=== PATIENT | female | born 1940 | race Caucasian/White ===

== ENCOUNTER 2023-04-02 16:21 | Observation (INO) | payer MEDICARE, MEDICAID, SELFPAY ==
[2023-04-02] VITALS (7 sets, daily range): BP systolic 138–161; BP diastolic 70–92; PULSE 65–74; RESP 14–18; TEMP 36.3–36.7; O2SAT 96–98; BMI 34.3; BMI 33.8
--- NOTE | 2023-04-02 16:30 | XR_ITS ---
The [address] [address] Patient Name: ARTURO ZHU MRN: [id number] date: 1940 Sex: F Assigned Patient Location: ER Current Patient Location: ER Accession/Order Number: [id number] Exam Date: 04/02/2023 17:00 Report Date: 04/02/2023 17:22 At the request of: LINA SINGLETON Procedure: XR tibia fibula LT 2V EXAM: XR tibia fibula LT 2V HISTORY: Fall out of wheelchair this morning, now with pain. COMPARISON: None. TECHNIQUE: 2 views of the left tibia and fibula were obtained. FINDINGS: There is no evidence of an acute fracture or dislocation. Diffuse asthenia is noted. Very mild degenerative changes are seen about the knee joints. Diffuse soft tissue swelling is noted in the leg extending into the ankle and foot. XR/XR tibia fibula LT 2V IMPRESSION: No acute fracture or dislocation. No significant focal osseous abnormality is identified. Diffuse osteopenia is noted. Electronically authenticated by: HERBERT MONTES Date: 04/02/2023 17:22
--- NOTE | 2023-04-02 16:30 | XR_ITS ---
The [address] [address] Patient Name: ARTURO ZHU MRN: [id number] date: 1940 Sex: F Assigned Patient Location: ER Current Patient Location: ED.MAIN Accession/Order Number: [id number] Exam Date: 04/02/2023 17:00 Report Date: 04/02/2023 17:27 At the request of: LINA SINGLETON Procedure: XR knee LT 4V EXAM: XR knee LT 4V, XR femur LT 2V, XR pelvis 1-2V HISTORY: Fall COMPARISON: Tibia and fibula x-rays of same day TECHNIQUE: 3 views of the knee and 4 views of the femur and AP pelvis FINDINGS: No visualized fracture, dislocation, subluxation or osseous lesion. Tricompartmental joint spaces of the knee are unremarkable for patient's age. Small osteophytes off the lateral tibial plateau and patella. Patient is status post right hip hemiarthroplasty. The prosthesis appears unremarkable. No visualized soft tissue edema. XR/XR knee LT 4V IMPRESSION: No visualized acute abnormality Electronically authenticated by: TABATHA CANADA Date: 04/02/2023 17:27
--- NOTE | 2023-04-02 16:30 | XR_ITS ---
The [address] [address] Patient Name: ARTURO ZHU MRN: [id number] date: 1940 Sex: F Assigned Patient Location: ER Current Patient Location: ED.MAIN Accession/Order Number: [id number] Exam Date: 04/02/2023 17:00 Report Date: 04/02/2023 17:27 At the request of: LINA SINGLETON Procedure: XR femur LT 2V EXAM: XR knee LT 4V, XR femur LT 2V, XR pelvis 1-2V HISTORY: Fall COMPARISON: Tibia and fibula x-rays of same day TECHNIQUE: 3 views of the knee and 4 views of the femur and AP pelvis FINDINGS: No visualized fracture, dislocation, subluxation or osseous lesion. Tricompartmental joint spaces of the knee are unremarkable for patient's age. Small osteophytes off the lateral tibial plateau and patella. Patient is status post right hip hemiarthroplasty. The prosthesis appears unremarkable. No visualized soft tissue edema. XR/XR femur LT 2V IMPRESSION: No visualized acute abnormality Electronically authenticated by: TABATHA CANADA Date: 04/02/2023 17:27
--- NOTE | 2023-04-02 16:32 | ED_ITS ---
HPI - Extremity Injury (Lower) General Chief Complaint: Extremity Injury, Lower Stated Complaint: FALL Time Seen by Provider: 04/02/23 16:26 Source: patient Mode of arrival: ambulance Limitations: physical limitation History of Present Illness HPI Narrative: patient is an 82-year-old female who presents to the emergency department by ambulance for the evaluation of left knee pain. Patient states that she fell ear lier today while walking with her walker and fell on her bilateral knees. She does complain of some pain to the left thigh and left lower leg but states most of her pain is in the left anterior knee. She denies head injury, loss of consciousness, neck or back pain. She is on no blood thinners. She takes a baby aspirin daily. she states initially she was able to take one small step but is no longer able to walk and called 911 to bring her to the hospital. Related Data Allergies Allergy/AdvReac Type Severity Reaction Status Date / Time No Known Drug Allergies Allergy Verified 04/02/23 16:25 Review of Systems ROS Constitutional Denies: fever or chills Ears, nose, mouth, and throat Denies: throat pain Cardiovascular Denies: chest pain Respiratory Denies: shortness of breath Gastrointestinal Denies: nausea or vomiting Musculoskeletal Reports: extremity pain; Denies: back pain or neck pain Integumentary/Breast Denies: rash Neurological Denies: headache PFSH PFSH Social History Smoking status: Never smoker Exam Narrative Exam Narrative: Gen.: Awake, alert, in no distress Head: Normocephalic, atraumatic ENT: Moist mucous membranes, C-spine nontender with full range of motion Respiratory: No respiratory distress, lungs clear bilaterally Cardio: Regular rate and rhythm Back: no bony tenderness of the T-spine or L-spine Extremities: left knee with edema and ecchymosis, limited range of motion of flexion and extension. 2+ DP pulses bilaterally with diffuse tenderness of the left lower leg and ankle, no obvious deformity. Diffuse mild tenderness of the left thigh with no obvious deformity or swelling noted. Pelvis is stable Psych: Normal mood and affect Neuro: No focal neuro deficit Skin: Warm, dry, intact Constitutional Vital Signs, click to edit/add: Last Vital Signs Temp 98.0 F 04/02/23 16:25 Pulse 74 04/02/23 16:25 Resp 16 04/02/23 16:25 BP 138/84 04/02/23 16:25 Pulse Ox 98 04/02/23 16:25 O2 Del Method Room Air 04/02/23 16:25 Course Vital Signs Vital signs: Vital Signs Temperature 98.0 F 04/02/23 16:25 Pulse Rate 74 04/02/23 16:25 Respiratory Rate 16 04/02/23 16:25 Blood Pressure 138/84 04/02/23 16:25 Pulse Oximetry 98 04/02/23 16:25 Oxygen Delivery Method Room Air 04/02/23 16:25 Temperature 98.0 F 04/02/23 16:25 Pulse Rate 74 04/02/23 16:25 Respiratory Rate 16 04/02/23 16:25 Blood Pressure 138/84 04/02/23 16:25 Pulse Oximetry 98 04/02/23 16:25 Oxygen Delivery Method Room Air 04/02/23 16:25 MDM - Extremity Injury (Lower) MDM Narrative Medical decision making narrative: patient was medicated with [facility] for pain. X-rays of the pelvis, left femur, left knee, left tibia-fibula show arthritis changes with no acute fracture or dislocation. patient is unable to bear weight and lives alone. She states there is no one who can help her at home. She is admitted for pain control, PT/OT evaluation. Discussed with her PCP, Dr. Kennedy ([id number]) who is in agreement with treatment plan. Patient admitted for observation. Medical Records Attestation: I reviewed the patient's medical records. Imaging Data XR pelvis/femur/knee/tibfib: Attestation: I have reviewed the pertinent imaging results. Radiologist's impression: No fracture Discharge Plan Discharge Chief Complaint: Extremity Injury, Lower Patient Disposition: Admitted as Observation Time of Disposition Decision: 17:42 Stand Alone Forms: Portal Instructions Referrals: Pj Kennedy MD [Primary Care Provider] - 1 week
--- NOTE | 2023-04-02 17:11 | XR_ITS ---
The [address] [address] Patient Name: ARTURO ZHU MRN: [id number] date: 1940 Sex: F Assigned Patient Location: ER Current Patient Location: ED.MAIN Accession/Order Number: [id number] Exam Date: 04/02/2023 17:00 Report Date: 04/02/2023 17:27 At the request of: LINA SINGLETON Procedure: XR pelvis 1-2V EXAM: XR knee LT 4V, XR femur LT 2V, XR pelvis 1-2V HISTORY: Fall COMPARISON: Tibia and fibula x-rays of same day TECHNIQUE: 3 views of the knee and 4 views of the femur and AP pelvis FINDINGS: No visualized fracture, dislocation, subluxation or osseous lesion. Tricompartmental joint spaces of the knee are unremarkable for patient's age. Small osteophytes off the lateral tibial plateau and patella. Patient is status post right hip hemiarthroplasty. The prosthesis appears unremarkable. No visualized soft tissue edema. XR/XR pelvis 1-2V IMPRESSION: No visualized acute abnormality Electronically authenticated by: TABATHA CANADA Date: 04/02/2023 17:27
[2023-04-02] MEDS: HYDROCODONE/ACETAMINOPHEN 5-325 MG TABLET 1 TAB PO (17:14)
[2023-04-02] MEDS: METHYLPREDNISOLONE SOD SUCC PF 125 MG/2 ML VIAL 60 MG IVP (21:14)
[2023-04-03 00:03] VITALS: BP 141/69; PULSE 74; RESP 14; TEMP 36.7; O2SAT 92; O2SAT 93
[2023-04-03 00:13] VITALS: PULSE 70; RESP 14
[2023-04-03] MEDS: METHYLPREDNISOLONE SOD SUCC PF 125 MG/2 ML VIAL 60 MG IVP ×4 (03:36→21:23)
[2023-04-03 04:35] LABS: Basophils Percent Auto 0.3 % (0.2-2.0); Hematocrit 38.6 % (36.0-48.0); Hemoglobin 12.3 g/dL (12.0-16.0); Immature Granulocytes Abs Auto 0.04 10^3/uL (0.00-0.03); Immature Granulocytes Pct Auto 0.6 % (0.0-0.5); Lymphocytes Absolute Auto 0.7 10^3/uL (1.2-3.8); Lymphocytes Percent Auto 10.3 % (20.5-60.0); Mean Corpuscular HGB Conc 31.9 g/dL (29.9-35.2); Mean Corpuscular Hemoglobin 29.3 pg (26.7-34.0); Mean Corpuscular Volume 91.9 fL (81.0-99.0); Mean Platelet Volume 10.9 fL (9.5-13.5); Monocytes Absolute Auto 0.1 10^3/uL (0.3-0.8); Monocytes Percent Auto 0.7 % (1.7-12.0); Neutrophils Absolute Auto 6.1 10^3/uL (1.4-6.5); Neutrophils Percent Auto 88.1 % (43.0-75.0); Platelet Count 215 10^3/uL (150-450); Red Cell Distribution Width 13.5 % (11.0-15.0)
[2023-04-03 04:42] LABS: Anion Gap 13.8; BUN Creatinine Ratio 22.4; Calcium 8.6 mg/dL (8.5-10.1); Carbon Dioxide 24.7 mmol/L (21.0-32.0); Chloride 104 mmol/L (98-107); Estimated GFR (African America 59 (>=60); Estimated GFR (Non-African Ame 49 (>=60); Glucose 169 mg/dL (74-106); Potassium 4.5 mmol/L (3.5-5.1); Sodium 138 mmol/L (136-145)
[2023-04-03 07:42] VITALS: BP 158/91; PULSE 71; RESP 18; TEMP 36.4; O2SAT 91
[2023-04-03] MEDS: ACETAMINOPHEN 500 MG TABLET 1000 MG PO (08:40)
--- NOTE | 2023-04-03 09:53 | CM.NOTE ---
Rounds made with Dr. Kennedy, discussed skilled therapy with pt. Pt states he first choice would be [facility].
--- NOTE | 2023-04-03 10:02 | P.HP_ITS ---
H&P: HPI History of Present Illness Chief complaint: Left knee pain Narrative: 82 y/o female with left sided hemiparesis due to prior stroke presents to ER after a fall. Patient was walking with walker and lost balance. Fell forward and hit left knee on TV and fell to ground. No LOC. Initially able to stand and bear weight but pain worsened. Severe pain in knee and not able to walk or stand. To ER and x-ray negative for acute change and showed OA knee. Left hip replacement with normal alignment. Not able to ambulate and admitted. Resumed home medication. Reports pain tolerable with medication. Review of Systems ROS Constitutional Denies: fever, chills or night sweats Cardiovascular Denies: chest pain, palpitations or edema Respiratory Denies: shortness of breath, cough or wheezing Gastrointestinal Denies: abdominal pain, nausea, vomiting or diarrhea Genitourinary Denies: painful urination [facility] Medical History (Updated 04/02/23 @ 18:56 by Pj Kennedy MD) Surgical History (Updated 04/02/23 @ 18:39 by Dipti Stubbs) Family History (Updated 04/02/23 @ 18:40 by Dipti Stubbs) Mother Family history of CHF (congestive heart failure) Family history of diabetes mellitus Family history of hypertension Family history of myocardial infarction Brother Family history of COPD (chronic obstructive pulmonary disease) Family history of cancer Sister Family history of COPD (chronic obstructive pulmonary disease) Family history of cancer Family history of hypertension Social History (Updated 04/02/23 @ 18:42 by Dipti Stubbs) Within the past year, how often did you have a drink containing alcohol: never Within the past year, how many standard drinks containing alcohol did you have on a typical day: 1 or 2 Within the past year, how often did you have six or more drinks on one occasion: never Total score: 0 Score interpretation: A score less than 3 is consistent with normal alcohol consumption. Smoking status: Never smoker Non-prescribed substance use: denies use Highest level of school completed/degree received: 8th grade Are you now , , , , never or living with a partner: In a typical week, how many times do you talk on the telephone with family, friends, or neighbors: twice per week How often do you get together with friends or relatives: 3 or more times per week How often do you attend catholic or synagogue services: 1-3 times per year Do you belong to any clubs or organizations such as catholic groups unions, fraternal or athletic groups, or school groups: no Total score: 1 Score interpretation: A score of less than or equal to 1 indicates the most socially isolated. Little interest or pleasure in doing things: not at all Feeling down, depressed, or hopeless: several days Feel stressed/tense/nervous/anxious/difficulty sleeping: only a little Gender Identity: female Meds Home Medications and Allergies Home Medications Medication Instructions Recorded Confirmed Type aspirin 81 mg capsule 81 mg PO DAILY 04/02/23 04/02/23 History omeprazole 40 mg capsule,delayed 40 mg PO DAILY 04/02/23 04/02/23 History release Allergies Allergy/AdvReac Type Severity Reaction Status Date / Time No Known Drug Allergies Allergy Verified 04/02/23 16:25 Exam Constitutional Vital Signs, click to edit/add: Last Vital Signs Temp 97.6 F 04/03/23 07:42 Pulse 71 04/03/23 07:42 Resp 18 04/03/23 07:42 BP 158/91 H 04/03/23 07:42 Pulse Ox 91 L 04/03/23 07:42 O2 Del Method Room Air 04/03/23 07:42 Documenting provider has reviewed patient's vital signs: yes Common normals: no apparent distress, oriented x3 and alert HENMT Common normals: normocephalic Eye Common normals: PERRL and EOMs intact bilaterally Respiratory Common normals: normal respiratory effort and clear to auscultation bilaterally Cardio Common normals: regular rate, regular rhythm, no gallops, no murmurs and no rub GI Common normals: Normal to inspection, nondistended, normoactive bowel sounds present and non-tender Extremity Common normals: no pedal edema Results Labs Labs: Short CBC 04/03/23 Range/Units 04:25 WBC 7.0 (4.0-11.0) 10^3/uL Hgb 12.3 (12.0-16.0) g/dL Hct 38.6 (36.0-48.0) % Plt Count 215 (150-450) 10^3/uL BMP 04/03/23 04:25 Sodium 138 Potassium 4.5 Chloride 104 Carbon Dioxide 24.7 BUN 24.0 H Creatinine 1.07 H Glucose 169 H Calcium 8.6 Imaging X-ray knee: Attestation: I have reviewed the pertinent imaging results. 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 Start solu-medrol for inflammation. Use tylenol or percocet for pain. Start PT/OT. Resume home medication. Very unsteady and having a difficult time ambulating. Likely will need SNF and consult social services specialist.
--- NOTE | 2023-04-03 10:23 | CM.NOTE ---
Medicare Outpatient Observation Notice discussed with pt, pt verbalizes understanding and signs form. Original given to pt and copy placed on pt's chart.
--- NOTE | 2023-04-03 10:36 | SWNOTE1 ---
SW spoke with case management and pt is agreeable to go skilled. She would like [facility]. SW called and left messsage for admissions and sent an email, waiting to hear back. Pt is a precert.
[2023-04-03 10:38] LABS: Bilirubin Urine NEGATIVE (NEGATIVE); Blood Urine TRACE-I (NEGATIVE); Clarity Urine CLEAR (CLEAR); Color Urine YELLOW (YELLOW); Glucose Urine UA NEGATIVE (NEGATIVE); Ketones Urine NEGATIVE (NEGATIVE); Leukocyte Esterase Urine NEGATIVE (NEGATIVE); Nitrite Urine NEGATIVE (NEGATIVE); Protein Urine >=300 mg/dL (NEG/TRACE); Specific Gravity Urine 1.025 (1.005-1.025)
[2023-04-03 10:39] LABS: Urine Microscopic Indicated YES
[2023-04-03 10:53] LABS: Bacteria Urine MODERATE #/HPF (NONE SEEN)
[2023-04-03 10:54] LABS: Cast Seen? NONE SEEN #/LPF (NONE SEEN); Starch Urine MANY
[2023-04-03 10:55] LABS: Crystals Seen? None Seen #/HPF (None Seen); Mucus Urine NONE SEEN (NONE SEEN); Squamous Epithelial Cell Urine FEW #/LPF (NONE/RARE)
[2023-04-03 10:57] LABS: Urine Culture Indicated ALREADY ORDERED
[2023-04-03 11:00] VITALS: BP 149/83; PULSE 68; RESP 18; TEMP 36.6; O2SAT 95
--- NOTE | 2023-04-03 12:04 | SWNOTE1 ---
FLORECITA spoke with Vane at [facility] and she needs insurance card to verify pt still has [employer]. They would love to have her back, just need to verify. FLORECITA spoke with pt and she does have her insurance card, FLORECITA made copy and sent to Vane's email.
[2023-04-03 13:46] VITALS: BMI 33.8
--- NOTE | 2023-04-03 13:49 | SWNOTE1 ---
FLORECITA did hear back from Vane at [facility] and they are able to accept and will start precert.
--- NOTE | 2023-04-03 14:55 | SWNOTE1 ---
OT notes sent to [facility].
[2023-04-03 21:41] VITALS: BP 138/70; PULSE 72; RESP 18; TEMP 36.5; O2SAT 92
[2023-04-04] MEDS: METHYLPREDNISOLONE SOD SUCC PF 125 MG/2 ML VIAL 60 MG IVP ×4 (05:00→21:35)
[2023-04-04 05:41] LABS: Eosinophils Percent Auto 0.1 % (0.9-7.0); Hematocrit 35.9 % (36.0-48.0); Hemoglobin 11.6 g/dL (12.0-16.0); Immature Granulocytes Abs Auto 0.05 10^3/uL (0.00-0.03); Immature Granulocytes Pct Auto 0.7 % (0.0-0.5); Lymphocytes Absolute Auto 0.8 10^3/uL (1.2-3.8); Lymphocytes Percent Auto 10.7 % (20.5-60.0); Mean Corpuscular HGB Conc 32.3 g/dL (29.9-35.2); Mean Corpuscular Hemoglobin 29.3 pg (26.7-34.0); Mean Corpuscular Volume 90.7 fL (81.0-99.0); Mean Platelet Volume 12.3 fL (9.5-13.5); Monocytes Absolute Auto 0.2 10^3/uL (0.3-0.8); Monocytes Percent Auto 2.2 % (1.7-12.0); Neutrophils Absolute Auto 6.2 10^3/uL (1.4-6.5); Neutrophils Percent Auto 86.3 % (43.0-75.0); Platelet Count 125 10^3/uL (150-450); Red Blood Count 3.96 10^6/uL (4.20-5.40); Red Cell Distribution Width 13.8 % (11.0-15.0); White Blood Count 7.2 10^3/uL (4.0-11.0)
[2023-04-04 05:45] LABS: Anion Gap 14.2; BUN Creatinine Ratio 25.2; Calcium 8.5 mg/dL (8.5-10.1); Carbon Dioxide 24.1 mmol/L (21.0-32.0); Chloride 103 mmol/L (98-107); Estimated GFR (African America 55 (>=60); Estimated GFR (Non-African Ame 45 (>=60); Glucose 169 mg/dL (74-106); Potassium 5.3 mmol/L (3.5-5.1); Sodium 136 mmol/L (136-145)
[2023-04-04] MEDS: OMEPRAZOLE 40 MG CAPSULE.DR PO (05:53)
[2023-04-04 05:58] VITALS: BP 144/71; PULSE 65; TEMP 36.3; O2SAT 93
[2023-04-04] MEDS: ASPIRIN 81 MG TAB.CHEW PO (09:11)
[2023-04-04] MEDS: CEFTRIAXONE 1,000 MG in 0.9 % SODIUM CHLORIDE 50 ML 100 MG IV (09:12)
--- NOTE | 2023-04-04 09:21 | PM.PN ---
Progress Note: Subjective Subjective Interval history: Patient improved this am. Continues to have left knee pain and worse with standing. Evaluated by PT/OT and very difficult to ambulate. Recommended SNF and information sent to insurance for precertification. Pain tolerable with medication. Normal appetite and no emesis or diarrhea. Afebrile. No chest pain or palpitations. Exam Constitutional Vital Signs, click to edit/add: Last Vital Signs Temp 97.4 F L 04/04/23 05:58 Pulse 65 04/04/23 05:58 Resp 18 04/03/23 21:41 BP 144/71 H 04/04/23 05:58 Pulse Ox 93 L 04/04/23 05:58 O2 Del Method Room Air 04/04/23 05:58 Documenting provider has reviewed patient's vital signs: yes Common normals: no apparent distress, oriented x3 and alert HENMT Common normals: normocephalic Eye Common normals: PERRL and EOMs intact bilaterally Respiratory Common normals: normal respiratory effort and clear to auscultation bilaterally Cardio Common normals: regular rate, regular rhythm, no gallops, no murmurs and no rub GI Common normals: Normal to inspection, nondistended, normoactive bowel sounds present and non-tender Extremity Common normals: no pedal edema Progress Note: Objective Labs Labs: Short CBC 04/04/23 Range/Units 04:23 WBC 7.2 (4.0-11.0) 10^3/uL Hgb 11.6 L (12.0-16.0) g/dL Hct 35.9 L (36.0-48.0) % Plt Count 125 L (150-450) 10^3/uL BMP 04/04/23 04:23 Sodium 136 Potassium 5.3 H Chloride 103 Carbon Dioxide 24.1 BUN 29.0 H Creatinine 1.15 H Glucose 169 H Calcium 8.5 Urine 04/03/23 Range/Units 09:50 Urine Color Yellow (YELLOW) Urine Clarity Clear (CLEAR) Urine pH 6.0 (5.0-9.0) Ur Specific [place] 1.025 (1.005-1.025) Urine Protein >=300 A (NEG/TRACE) mg/dL Urine Glucose (UA) Negative (NEGATIVE) mg/dL Progress Note: A&P Assessment and Plan (1) Acute pain of left knee: (2) UTI (urinary tract infection): (3) Inability to ambulate due to knee: (4) Primary osteoarthritis of left knee: (5) 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 Continue PT/OT for weakness. Monitor labs. Continue percocet PRN for pain and solu-medrol for inflammation. Awaiting insurance approval for SNF.
--- NOTE | 2023-04-04 10:03 | REH.PTDLY ---
Physical Therapy Daily Note PT Daily Note/Assess Start: 04/04/23 09:54 Freq: Status: Active Protocol: Document 04/04/23 09:57 LOUIE (Rec: 04/04/23 10:02 LOUIE [id number]) Physical Therapy Daily Note/Assessment Time In 08:53 Time Out 09:12 Pain Level 0 Subjective Pt reports no pain at rest. Soreness and stiffness when trying to move L LE. States she didn't sleep all night. Therapeutic Exercise Minutes (minutes) 12 Therapeutic Exercise Units 1 Therapeutic Exercise Treatment Instructed in supine exs 10x ea with B LE with exs including AP, QS, heel slides, abd slides, and SLR. Pt needs AA with SLR and abd slides. Seated in chair pt performs HR , LAQ, hip add, and marching 10x ea Therapeutic Activity Minutes (minutes) 7 Therapeutic Activity Units 0 Bed Mobility Ability Contact Guard Assist Chair Transfer Ability Contact Guard Assist,Minimum Assist,1 Person Assist Therapeutic Activity Comments Pt able to perform supine to sit transfers CGA with pt using bed rail for assist. Sit to stand transfers CGA. Pt transfers from bed over to chair 2 feet away with pt taking very small steps CGA- Min A at times with RW. Verbal cues needed to advance R LE. Pt struggles to bear weight thru L LE, resulting in Very small steps with R leg. Cues to reach back for chair upon sitting. Total Therapy Minutes 19 Total Physical Therapy Units 1 Daily Note Summary Pt determined to perform transfers on her own. Needs verbal cues at times for safety. Pt weak with gait due to L knee pain. Will benefit from skilled stay to regain strength and independence.
[2023-04-04 13:13] VITALS: BP 119/57; PULSE 66; RESP 18; TEMP 36.6; O2SAT 94
[2023-04-04 20:00] VITALS: BP 129/61; PULSE 56; RESP 18; TEMP 36.4; O2SAT 93
[2023-04-05] MEDS: TEMAZEPAM 15 MG CAPSULE PO ×2 (00:23→23:05)
[2023-04-05] MEDS: METHYLPREDNISOLONE SOD SUCC PF 125 MG/2 ML VIAL 60 MG IVP ×2 (01:42→07:54)
[2023-04-05 06:00] VITALS: BP 146/83; PULSE 56; RESP 20; TEMP 36.4; O2SAT 91
[2023-04-05 06:19] LABS: Basophils Percent Auto 0.1 % (0.2-2.0); Hematocrit 34.5 % (36.0-48.0); Hemoglobin 11.2 g/dL (12.0-16.0); Immature Granulocytes Abs Auto 0.04 10^3/uL (0.00-0.03); Immature Granulocytes Pct Auto 0.6 % (0.0-0.5); Lymphocytes Absolute Auto 0.6 10^3/uL (1.2-3.8); Lymphocytes Percent Auto 8.7 % (20.5-60.0); Mean Corpuscular HGB Conc 32.5 g/dL (29.9-35.2); Mean Corpuscular Volume 89.4 fL (81.0-99.0); Mean Platelet Volume 10.9 fL (9.5-13.5); Monocytes Absolute Auto 0.2 10^3/uL (0.3-0.8); Monocytes Percent Auto 2.5 % (1.7-12.0); Neutrophils Percent Auto 88.1 % (43.0-75.0); Platelet Count 209 10^3/uL (150-450); Red Blood Count 3.86 10^6/uL (4.20-5.40); White Blood Count 6.9 10^3/uL (4.0-11.0)
[2023-04-05 06:32] LABS: Anion Gap 12.1; BUN Creatinine Ratio 34.9; Calcium 8.4 mg/dL (8.5-10.1); Carbon Dioxide 24.4 mmol/L (21.0-32.0); Chloride 105 mmol/L (98-107); Estimated GFR (African America 60 (>=60); Estimated GFR (Non-African Ame 50 (>=60); Glucose 152 mg/dL (74-106); Potassium 4.5 mmol/L (3.5-5.1); Sodium 137 mmol/L (136-145)
[2023-04-05] MEDS: OMEPRAZOLE 40 MG CAPSULE.DR PO ×2 (07:12→22:00)
[2023-04-05] MEDS: ASPIRIN 81 MG TAB.CHEW PO (09:14)
[2023-04-05] MEDS: CEFTRIAXONE 1,000 MG in 0.9 % SODIUM CHLORIDE 50 ML 100 MG IV (09:14)
--- NOTE | 2023-04-05 12:13 | PM.PN ---
Progress Note: Subjective Subjective Interval history: Patient improved this am. Continues to have left knee pain and worse with standing but improved since admission. Still very difficult to ambulate. Recommended SNF and information sent to insurance for precertification. Pain tolerable with medication. Normal appetite and no emesis or diarrhea. Afebrile. No chest pain or palpitations. Exam Constitutional Vital Signs, click to edit/add: Last Vital Signs Temp 97.6 F 04/05/23 06:00 Pulse 56 L 04/05/23 06:00 Resp 20 04/05/23 06:00 BP 146/83 H 04/05/23 06:00 Pulse Ox 91 L 04/05/23 06:00 O2 Del Method Room Air 04/05/23 06:00 Documenting provider has reviewed patient's vital signs: yes Common normals: no apparent distress, oriented x3 and alert HENMT Common normals: normocephalic Eye Common normals: PERRL and EOMs intact bilaterally Respiratory Common normals: normal respiratory effort and clear to auscultation bilaterally Cardio Common normals: regular rate, regular rhythm, no gallops, no murmurs and no rub GI Common normals: Normal to inspection, nondistended, normoactive bowel sounds present and non-tender Extremity Common normals: no pedal edema Progress Note: Objective Labs Labs: Short CBC 04/05/23 Range/Units 06:08 WBC 6.9 (4.0-11.0) 10^3/uL Hgb 11.2 L (12.0-16.0) g/dL Hct 34.5 L (36.0-48.0) % Plt Count 209 (150-450) 10^3/uL BMP 04/05/23 06:08 Sodium 137 Potassium 4.5 Chloride 105 Carbon Dioxide 24.4 BUN 37.0 H Creatinine 1.06 H Glucose 152 H Calcium 8.4 L Progress Note: A&P Assessment and Plan (1) Acute pain of left knee: (2) UTI (urinary tract infection): (3) Inability to ambulate due to knee: (4) Primary osteoarthritis of left knee: (5) 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 coli and sensitive to rocephin. Continue PT/OT for weakness. Labs stable. Continue percocet PRN for pain. Stop solu-medrol and start oral prednisone in am for inflammation. Awaiting insurance approval for SNF.
[2023-04-05 14:00] VITALS: BP 149/68; PULSE 65; RESP 18; TEMP 36.6; O2SAT 97
[2023-04-05 22:05] VITALS: BP 157/84; PULSE 66; TEMP 36.6; O2SAT 93
[2023-04-06 06:00] VITALS: BP 142/71; PULSE 63; TEMP 36.4; O2SAT 93
[2023-04-06] MEDS: ASPIRIN 81 MG TAB.CHEW PO (09:16)
[2023-04-06] MEDS: OMEPRAZOLE 40 MG CAPSULE.DR PO ×2 (09:16→21:11)
[2023-04-06] MEDS: AMLODIPINE BESYLATE 5 MG TABLET PO (09:16)
[2023-04-06] MEDS: CEFTRIAXONE 1,000 MG in 0.9 % SODIUM CHLORIDE 50 ML 100 MG IV (09:20)
--- NOTE | 2023-04-06 10:37 | PM.DS1 ---
DS: Providers Provider Date of admission: 04/05/23 21:40 Primary care physician: Pj Kennedy MD Consults: 04/02/23 19:02 Occupational Therapy Eval and Treat Routine Physical Therapy Eval and Treat Routine 04/03/23 10:07 Physical Therapy Eval and Treat Routine 04/06/23 08:37 Occupational Therapy Eval and Treat Routine Physical Therapy Eval and Treat Routine Attending physician on discharge: Shaikh Russ Discharging clinician: Shaikh Russ DS: Diagnosis Discharge Diagnosis (1) Acute pain of left knee: Assessment and plan: Better but still painful and restricted ROM due to pain. Accepted for SNF - will d/c today (2) UTI (urinary tract infection): Assessment and plan: Sec to E coli Will d/c on Ceftin for 3 more days (3) Inability to ambulate due to knee: Assessment and plan: Restricted mobility at baseline but worse due to pain. 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 C/w ASA (6) Hypertension: Assessment and plan: Did not see antihypertensive on home meds. BP above goal while in patient. Started on Amlodipine 5 mg daily. Outpatient f/u (7) Cerebrovascular disease: Assessment and plan: H/o CVA with left hemiparesis. Not on Statin for unclear reason. Defer to PCP (8) Stage 3a chronic kidney disease: Assessment and plan: CKD 2-3/ Stable. Monitor. (9) Obesity: Assessment and plan: Would benefit from weight loss. DS: Summary Hospital Course Hospital Course: Patient admitted for generalized weakness, inability to safely ambulate after fall, pain control, and UTI. PT/OT eval and rx. Recommended short term rehab. Medically stable for D.c Diagnosed w/u showed UTI - sec to E coli. Will d/c on oral Ceftin x 3 more days. Pain is improved but still present, poor balance, ambulatory dysfunction and will benefit from rehab to improve physical deconditioning. Status at Discharge Functional status at discharge: uses cane/walker Time Spent with Patient Time attestation: Total time spent providing and/or coordinating discharge services: Time spent: greater than 30 minutes Exam Constitutional Vital Signs, click to edit/add: Last Vital Signs Temp 97.5 F L 04/06/23 06:00 Pulse 63 04/06/23 06:00 Resp 18 04/05/23 14:00 BP 142/71 H 04/06/23 06:00 Pulse Ox 93 L 04/06/23 06:00 O2 Del Method Room Air 04/06/23 06:00 Documenting provider has reviewed patient's vital signs: yes Common normals: no apparent distress and oriented x3 Nutritional appearance: obese HENMT Common normals: normocephalic and head/scalp atraumatic Head and scalp: normocephalic and atraumatic Eye Common normals: conjunctivae normal and no scleral icterus Conjunctiva: conjunctiva(e) normal Respiratory Common normals: normal respiratory effort and clear to auscultation bilaterally Auscultation: clear to auscultation bilaterally Cardio Common normals: regular rate, regular rhythm, S1 normal heart sound and S2 normal heart sound Rate: regular rate Rhythm: regular rhythm Heart sounds: S1 normal and S2 normal GI Common normals: Normal to inspection, nondistended, normoactive bowel sounds present, soft to palpation, non-tender and no hepatosplenomegaly Palpation: soft and no hepatosplenomegaly Extremity Common normals: no clubbing, cyanosis or edema Right lower extremity: knee joint Right knee: ROM (decreased ROM both passive and active) Neuro Common normals: oriented x3, moves all extremities (LUE and LLE weakness. ), no focal motor deficits and no sensory deficits noted Psych Psychiatry clinicians, please identify where your Mental Status Exam is documented: Mental Status Exam documented in the separate MSE Common normals: mental status grossly normal, thought process normal, denies hallucinations, denies homicidal ideation and denies suicidal ideation Thought process: normal thought process Discharge Plan Discharge Disposition: Xfer SNF Condition: Good Discharge Medications: New cefuroxime axetil 500 mg tablet 500 mg PO Q12H 3 Days Qty: 6 0RF Continued omeprazole 40 mg capsule,delayed release(DR/EC) 40 mg PO DAILY aspirin 81 mg capsule 81 mg PO DAILY Forms: Portal Instructions
--- NOTE | 2023-04-06 11:31 | CM.NOTE ---
Rounds made with becki Andrews to discharge when precert completed. Pt will go to [place] for skilled therapy.
--- NOTE | 2023-04-06 11:49 | SWNOTE1 ---
Updates sent to dain Campbell left for admissions as well.
--- NOTE | 2023-04-06 13:05 | NUTR.NU ---
Interviewed Gwen at bedside. She has a very good appetite and feeds herself. Full dentures. No allergies to food, ht 62 wt 184.5# BMi 33.8 obese class I To transfer to SNF today for therapy.
[2023-04-06 15:10] VITALS: BP 133/67; PULSE 70; RESP 18; TEMP 36.4; O2SAT 94
[2023-04-06 19:37] VITALS: RESP 18
[2023-04-06 20:16] VITALS: BP 138/72; PULSE 76; RESP 18; TEMP 36.4
[2023-04-06] MEDS: TEMAZEPAM 15 MG CAPSULE PO (21:11)
[2023-04-07 03:54] VITALS: BP 139/89; PULSE 65; RESP 18; TEMP 36.4; O2SAT 93
[2023-04-07] MEDS: AMLODIPINE BESYLATE 5 MG TABLET PO (08:38)
[2023-04-07] MEDS: CEFTRIAXONE 1,000 MG in 0.9 % SODIUM CHLORIDE 50 ML 100 MG IV (08:38)
[2023-04-07] MEDS: OMEPRAZOLE 40 MG CAPSULE.DR PO (08:39)
[2023-04-07] MEDS: ASPIRIN 81 MG TAB.CHEW PO (08:39)
--- NOTE | 2023-04-07 09:51 | SWNOTE1 ---
FLORECITA reached out to Abbie from [facility] to check on precert, she stated updates were submitted yesterday and she has not heard back yet. FLORECITA updated manager of case management.
--- NOTE | 2023-04-07 10:34 | CM.NOTE ---
Rounds made with becki Andrews to discharge to skilled facility ([facility]) when precert completed.
--- NOTE | 2023-04-07 13:23 | SWNOTE1 ---
FLORECITA received call from Abbie at [facility] and pt is approved to go skilled. FLORECITA called and set up trips, they will be here between 4-4:30. FLORECITA notified nursing, [facility], and patient of time. FLORECITA sent over ar med rec and updated packet. FLORECITA completed HENS.
[2023-04-07 14:34] VITALS: BP 144/83; PULSE 63; RESP 18; TEMP 36.4; O2SAT 94
--- NOTE | 2023-04-07 15:02 | PC.NURSE ---
called report to david yepez [facility] at this time.
--- NOTE | 2023-04-07 15:03 | P.DS_ITS ---
DS: Providers Provider Date of admission: 04/05/23 21:40 Primary care physician: Pj Kennedy MD Consults: 04/02/23 19:02 Occupational Therapy Eval and Treat Routine Physical Therapy Eval and Treat Routine 04/03/23 10:07 Physical Therapy Eval and Treat Routine 04/06/23 08:37 Occupational Therapy Eval and Treat Routine Physical Therapy Eval and Treat Routine DS: Diagnosis Discharge Diagnosis (1) Acute pain of left knee: Assessment and plan: Better but still painful and restricted ROM due to pain. Accepted for SNF - will d/c today Could not leave on 04/06 due to delay in precertification (2) UTI (urinary tract infection): Assessment and plan: Sec to E coli Will d/c on Ceftin for 3 more days (3) Inability to ambulate due to knee: Assessment and plan: Restricted mobility at baseline but worse due to pain. 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 C/w ASA (6) Hypertension: Assessment and plan: Did not see antihypertensive on home meds. BP above goal while in patient. Defer to PCP (7) Cerebrovascular disease: Assessment and plan: H/o CVA with left hemiparesis. Not on Statin for unclear reason. Defer to PCP (8) Stage 3a chronic kidney disease: Assessment and plan: CKD 2-3/ Stable. Monitor. (9) Obesity: Assessment and plan: Would benefit from weight loss. DS: Summary Hospital Course Hospital Course: Patient admitted for generalized weakness, inability to safely ambulate after fall, pain control, and UTI. PT/OT eval and rx. Recommended short term rehab. Medically stable for D.c Diagnostic w/u showed UTI - sec to E coli. Will d/c on oral Ceftin x 3 more days. Pain is improved but still present, poor balance, ambulatory dysfunction and will benefit from rehab to improve physical deconditioning. Time Spent with Patient Time attestation: Total time spent providing and/or coordinating discharge services: Time spent: greater than 30 minutes Exam Constitutional Vital Signs, click to edit/add: Last Vital Signs Temp 97.6 F 04/07/23 14:34 Pulse 63 04/07/23 14:34 Resp 18 04/07/23 14:34 BP 144/83 H 04/07/23 14:34 Pulse Ox 94 L 04/07/23 14:34 O2 Del Method Room Air 04/07/23 14:34 Documenting provider has reviewed patient's vital signs: yes Common normals: no apparent distress and oriented x3 Nutritional appearance: obese HENMT Common normals: normocephalic and head/scalp atraumatic Head and scalp: normocephalic and atraumatic Eye Common normals: conjunctivae normal and no scleral icterus Conjunctiva: conjunctiva(e) normal Respiratory Common normals: normal respiratory effort and clear to auscultation bilaterally Auscultation: clear to auscultation bilaterally Cardio Common normals: regular rate, regular rhythm, S1 normal heart sound and S2 normal heart sound Rate: regular rate Rhythm: regular rhythm Heart sounds: S1 normal and S2 normal GI Common normals: Normal to inspection, nondistended, normoactive bowel sounds present, soft to palpation, non-tender and no hepatosplenomegaly Palpation: soft and no hepatosplenomegaly Extremity Common normals: no clubbing, cyanosis or edema Right lower extremity: knee joint Right knee: ROM (decreased ROM both passive and active) Neuro Common normals: oriented x3, moves all extremities (LUE and LLE weakness. ), no focal motor deficits and no sensory deficits noted Psych Psychiatry clinicians, please identify where your Mental Status Exam is documented: Mental Status Exam documented in the separate MSE Common normals: mental status grossly normal, thought process normal, denies hallucinations, denies homicidal ideation and denies suicidal ideation Thought process: normal thought process Discharge Plan Discharge Disposition: Xfer SNF Condition: Good Discharge Medications: New cefuroxime axetil 500 mg tablet 500 mg PO Q12H 3 Days Qty: 6 0RF Continued omeprazole 40 mg capsule,delayed release(DR/EC) 40 mg PO DAILY aspirin 81 mg capsule 81 mg PO DAILY Respiratory Therapy Assistant/[employer] Manager Instructions: Discharge to [facility]. Forms: Portal Instructions
== END 2023-04-07 16:11 ==
LOC: ER 17:52 → ICU 19:24 → MS 04-05 12:18 → ICU 04-08 14:06 → MS 04-09 08:00
PROVIDERS: Admitting Provider Internal Medicine; Emergency Provider Emergency Medicine; PCP Family Medicine; Visit Provider Internal Medicine
DX: M25.562 Pain in left knee (principal); N39.0 Urinary tract infection, site not specified; B96.20 Unspecified Escherichia coli [E. coli] as the cause of diseases classified elsewhere; R26.2 Difficulty in walking, not elsewhere classified; M17.12 Unilateral primary osteoarthritis, left knee; I69.354 Hemiplegia and hemiparesis following cerebral infarction affecting left non-dominant side; I67.9 Cerebrovascular disease, unspecified; E66.9 Obesity, unspecified; I12.9 Hypertensive chronic kidney disease with stage 1 through stage 4 chronic kidney disease, or unspecified chronic kidney disease; N18.31 Chronic kidney disease, stage 3a; Z68.33 Body mass index [BMI] 33.0-33.9, adult; Z96.642 Presence of left artificial hip joint; Z79.82 Long term (current) use of aspirin; Z79.899 Other long term (current) drug therapy; Z91.81 History of falling
CPT/HCPCS: 36415; 72170; 73552; 73564; 73590; 80048; 81001; 85025; 87086; 87150; 87186; 96365; 96366; 96375; 96376; 97110; 97161; 97165; 97530; 97535; 99285; G0378; J2930